=== PATIENT | female | born 1990 | race Two or more races ===

== ENCOUNTER 2021-04-03 10:19 | Emergency (ER) | payer OTHER ==
[~2021-04-03] VITALS: Ht 162.6 cm; Wt 63.5 kg
== END 2021-04-03 17:49 | disposition home or self-care (01) ==
LOC: ER 10:19
DX: R00.2 Palpitations (principal); R00.0 Tachycardia, unspecified

== ENCOUNTER 2022-02-01 06:44 | Emergency (ER) | payer OTHER ==
[~2022-02-01] VITALS: Ht 162.6 cm; Wt 63.0 kg
== END 2022-02-01 10:43 | disposition home or self-care (01) ==
LOC: ER 06:44
DX: R21 Rash and other nonspecific skin eruption (principal); Z20.822 Contact with and (suspected) exposure to COVID-19

== ENCOUNTER 2022-11-07 16:49 | Emergency (ER) | payer OTHER ==
[~2022-11-07] VITALS: Ht 162.6 cm; Wt 64.9 kg
== END 2022-11-07 17:53 | disposition home or self-care (01) ==
LOC: ER 16:49
DX: J06.9 Acute upper respiratory infection, unspecified (principal)

== ENCOUNTER 2024-07-12 09:05 | Emergency (ER) | payer OTHER ==
[~2024-07-12] VITALS: Ht 162.6 cm; Wt 61.2 kg
[2024-07-12 12:02] LABS: HEMATOCRIT 41.7 % (36.0-45.00); HEMOGLOBIN 13.7 g/dL (12.0-15.00); MEAN CELL VOLUME 82.2 fL (80.00-100.00); MEAN CORPUSCULAR HGB CONC 32.8 g/dl (32.0-36.0); PLATELET COUNT 191 K/uL (150-450); RED BLOOD COUNT 5.07 M/uL (4.00-6.00); RED CELL DISTRIBUTION WIDTH 14.4 % (11.5-14.5)
[2024-07-12 12:32] LABS: CALCIUM 9.3 mg/dL (8.5-10.1); CREATININE SERUM 0.74 mg/dL (0.55-1.02); GFR 91.54; POTASSIUM 3.67 mEq/L (3.5-5.1)
[2024-07-12] MEDS ORDERED: METRONIDAZOLE500 MG PO (13:10)
[2024-07-12] MEDS ORDERED: PROBIOTIC & AC1 EACH PO (13:10)
[2024-07-12] MEDS ORDERED: BACTRIM DS TAB1 EACH PO (13:10)
[2024-07-12] MEDS ORDERED: PEPCID AC20 MG PO (13:11)
== END 2024-07-12 13:30 | disposition home or self-care (01) ==
LOC: ER 09:07
PROVIDERS: General Practice
DX: K52.9 Noninfective gastroenteritis and colitis, unspecified (principal)